=== PATIENT | female | born 1960 | race Caucasian/White ===

== ENCOUNTER 2019-04-23 21:11 | Emergency (ER) | payer BC ==
[~2019-04-23] VITALS: Ht 157.5 cm; Wt 54.2 kg
[2019-04-23] MEDS ORDERED: TETANUS/DIPHTHERIA TOX ADULT 0.5 ML SYR IM STA (21:41)
[2019-04-23] MEDS ORDERED: LIDOCAINE 1% 5ML-MPF INJ ONE (21:45)
[2019-04-23] MEDS ORDERED: TETANUS/DIPHTHERIA TOX ADULT 0.5 ML SYR ONE (22:10)
--- OUTSIDE RECORDS SUMMARY | 2019-05-01 11:34 | XMS REPORT ---
[facility] Address Unknown Phone Unavailable Care Team Providers Care Residential Child Care Counselor Name Role Phone Unavailable Unavailable Problems This patient has no known problems. Allergies, Adverse Reactions, Alerts This patient has no known allergies or adverse reactions. Medications This patient has no known medications. Results Test Description Test Time Test Comments Text Results Atomic Results Result Comments MM, DIGITAL, MAMMO, SCREENING, IMPLANT, BILATERAL, WITH YARA, INCL CAD 2018-10-02 15:24:00 Diagnostic workup per radiologist?->Yes Reason for Exam:->z12.31 #[id number] - MM, DIGITAL, MAMMO, SCREENING, IMPLANT, BILATERAL, WITH YARA, INCL CADBILATERAL DIGITAL SCREENING MAMMOGRAM 3D/2D WITH CAD WITH AUGMENTATION: 10/02/2018CLINICAL: Routine screening mammogram. Comparison is made to exams dated: 05/22/2017 mammogram, 04/13/2016 mammogram, 04/04/2015 mammogram, 04/02/2014 mammogram, and 01/20/2013 mammogram - [facility]. The tissue of both breasts is heterogeneously dense. This may lower the sensitivity of mammography. Tomosynthesis 3D imaging of the breasts was also performed. Current study was a lso evaluated with a Computer Aided Detection (CAD) system. Bilateral subpectoral saline implants are present. Implants may obscure breast parenchyma, making mammographic interpretation difficult. There is a stable calcification/calcified lymph node in the right axilla.There is a postsurgical scar involving the right breast.No significant masses, calcifications, or other findings are seen in either breast. IMPRESSION: BENIGNThere is no mammographic evidence of malignancy. A 1 year screening mammogram is recommended. Norman Jasmine M.D. ds/:10/02/2018 15:24:06 Normal Exam Mammogram BI- RADS: 2 Benign , DIGITAL, MAMMO, SCREENING, IMPLANT, BILATERAL INCLUDING CAD 2017-05-22 15:19:00 Reason for Exam:->Encounter for screening mammogram for breast cancer #[id number] - MM, DIGITAL, MAMMO, SCREENING, IMPLANT, BILATERAL INCLUDING CADBILATERAL DIGITAL SCREENING MAMMOGRAM WITH CAD WITH AUGMENTATION: 05/22/2017CLINICAL: Routine screening mammogram. Comparison is made to exams dated: 04/13/2016 mammogram, 04/04/2015 mammogram, 04/02/2014 mammogram, and 01/20/2013 mammogram - [facility] [place] [facility]. The tissue of both breasts is heterogeneously dense. This may lower the sensitivity of mammography. Current study was also evaluated with a Computer Aided Detection (CAD) system. There is a post-surgical scar associated with the right breast. Bilateral subpectoral saline implants are present. Implants may obscure breast parenchyma, making mammographic interpretation difficult. There is a stable calcified lymph node/coarse calcification in the right axilla. No significant masses, calcifications, or other findings are seen in either breast. There has been no significant interval change. IMPRESSION: BENIGNThere is no mammographic evidence of malignancy. A 1 year screening mammogram is recommended. Norman Jasmine M.D. ds/:05/22/2017 15:19:02 Normal Exam Mammogram BI- RADS: 2 Benign [id number]
--- OUTSIDE RECORDS SUMMARY | 2019-05-01 11:34 | XMS REPORT | Summary of Care ---
Author Author [facility] Address [address] [place] [address] Phone Unavailable Care Team Providers Care Regional Program Manager Name Role Phone TERESA Eng, VITALIY Unavailable Unavailable Isa TRAYLOR, Harley Unavailable Unavailable Kevin Dimas MD Unavailable Unavailable HARLEY MAY M.D. 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 * Quantity: 200 Refills: 0 TERESA N.P., DELOREAN * Start : 17-Apr-2017 Active Benzonatate 200 MG Oral Capsule TAKE 1 CAPSULE 3 TIMES DAILY NEEDED. * Quantity: 30 Refills: 0 TERESA N.P., MATTOREAN * Start : 17-Apr-2017 Active Azithromycin 250 MG Oral Tablet TAKE 2 TABLETS ON DAY 1 THEN TAKE 1 TABLET A DAY FOR 4 DAYS. * Quantity: 6 Refills: 0 TERESA N.P., DELOREAN * Start : 01-May-2017 Active 6 Tablet Pack Zyrtec TABS * Refills: 0 Active Flonase SUSP * Refills: 0 Active Allergies and Adverse Reactions Name Dates Details No Known Allergies (Allergy) Status: Active Past Medical History Name Dates Details History of lentigo (V13.3, Z87.2) Status: Resolved Procedures Procedure Dates Details Procedures not documented Immunization Name Dates Details Immunizations not documented Family History Name Dates Details Family history of malignant neoplasm of brain (V16.8, Z80.8) Status: Active Name Dates Details Family history of malignant neoplasm of brain (V16.8, Z80.8) Status: Active Social History Name Dates Details - Status: Name Dates Details Never smoker Vital Signs Date Test Result Details No Known Vitals to report Results Date Description Value Details Results not documented Plan of Care Name Dates Details Planned Observations Planned Goals not documented Instructions Name Dates Details Instructions not documented Encounters Appointment; LINDSEY HARRIS M.D. Encounter Diagnosis: Problem not documented On: 28-Jun-2016 9:00 Appointment; MERNA SILVERMAN M.D. Encounter Diagnosis: Problem not documented On: 11-Feb-2017 14:15 Appointment; VITALIY MOORE NP Encounter Diagnosis: Problem not documented On: 17-Apr-2017 10:20 Appointment; ALISIA AVENDANO M.D. Encounter Diagnosis: Problem not documented On: 02-May-2017 9:45
== END 2019-04-23 22:24 | disposition home or self-care (01) ==
LOC: FSED 21:11
DX: S61.012A Laceration without foreign body of left thumb without damage to nail, initial encounter (principal); W26.0XXA Contact with knife, initial encounter; Y92.008 Other place in unspecified non-institutional (private) residence as the place of occurrence of the external cause
CPT/HCPCS: 90714; 99282